=== PATIENT | female | born 1955 | race Two or more races ===

== ENCOUNTER 2021-02-20 10:45 | Outpatient (CLI) | payer SELFPAY | END 2021-02-20 23:59 | disposition home or self-care (01) | LOC: MSC 10:45 | PROVIDERS: ATTEND Internal Medicine | DX: R60.0 Localized edema (principal); N17.0 Acute kidney failure with tubular necrosis; E11.22 Type 2 diabetes mellitus with diabetic chronic kidney disease; E11.65 Type 2 diabetes mellitus with hyperglycemia; I12.9 Hypertensive chronic kidney disease with stage 1 through stage 4 chronic kidney disease, or unspecified chronic kidney disease; N18.4 Chronic kidney disease, stage 4 (severe); Z79.4 Long term (current) use of insulin; E78.5 Hyperlipidemia, unspecified; D64.9 Anemia, unspecified; Z99.3 Dependence on wheelchair; Z79.899 Other long term (current) drug therapy ==

== ENCOUNTER 2021-03-06 08:55 | Outpatient (CLI) | payer SELFPAY | END 2021-03-06 23:59 | disposition home or self-care (01) | LOC: MSC 08:55 | PROVIDERS: ATTEND Internal Medicine | DX: I12.9 Hypertensive chronic kidney disease with stage 1 through stage 4 chronic kidney disease, or unspecified chronic kidney disease (principal); E11.22 Type 2 diabetes mellitus with diabetic chronic kidney disease; E11.65 Type 2 diabetes mellitus with hyperglycemia; N18.4 Chronic kidney disease, stage 4 (severe); N17.0 Acute kidney failure with tubular necrosis; Z79.4 Long term (current) use of insulin; R60.0 Localized edema; E78.5 Hyperlipidemia, unspecified; D64.9 Anemia, unspecified; Z71.89 Other specified counseling; Z79.899 Other long term (current) drug therapy ==

== ENCOUNTER 2021-06-16 15:00 | Outpatient (CLI) | payer SELFPAY | END 2021-06-16 23:59 | disposition home or self-care (01) | LOC: WOU 15:00 | PROVIDERS: ATTEND Internal Medicine | DX: D64.9 Anemia, unspecified (principal) | CPT/HCPCS: J0885 ×2; 96372 ==